=== PATIENT | male | born 1980 | race Hispanic/Latino ===

== ENCOUNTER 2025-02-24 06:08 | Day surgery (SDC) | payer OTHER ==
[2025-02-24] VITALS (10 sets, daily range): BP systolic 90–114; BP diastolic 41–72; PULSE 61–71; RESP 14–17; TEMP 97.4–98.1
[~2025-02-24] VITALS: Ht 180.3 cm; Wt 83.9 kg
[2025-02-24] MEDS: 0.9%NACL 1000ML 1,000 ML IV ONE (06:28)
[2025-02-24] MEDS ORDERED: proPOFol 10 MG/ML 20ML VIAL IV ONE ×3 (06:52→07:24)
[2025-02-24] MEDS ORDERED: LIDOCAINE PF 100MG/5ML (2%) SYRINGE 5ML ONE (06:52)
[2025-02-24] MEDS ORDERED: GLYCOPYRROLATE 0.2 MG/ML 5 ML VIAL ONE (06:53)
--- NOTE | 2025-02-24 08:48 | NUR ---
Full and complete discharge instructions given to Patient and Family both verbally and in writing. Explained GI procedure precautions and follow up. All questions answered. PIV removed with catheter tip intact. Home with Family W/C to POV.
== END 2025-02-24 08:50 | disposition home or self-care (01) ==
LOC: ENDO 06:08 → DAH 06:08 → ENDO 08:50
PROVIDERS: ATTEND Internal Medicine
DX: R19.4 Change in bowel habit (principal); D12.3 Benign neoplasm of transverse colon; D12.2 Benign neoplasm of ascending colon; D12.4 Benign neoplasm of descending colon; D12.5 Benign neoplasm of sigmoid colon; K62.1 Rectal polyp; K64.0 First degree hemorrhoids; K21.00 Gastro-esophageal reflux disease with esophagitis, without bleeding; G47.33 Obstructive sleep apnea (adult) (pediatric); K31.89 Other diseases of stomach and duodenum; Z87.442 Personal history of urinary calculi; Z79.899 Other long term (current) drug therapy
CPT/HCPCS: 45380; 45385; 43239; J7030; J2003; J2704 ×3; J3490; A4620; A4215 ×2; A4223; A4222; A4221; A4663; A4606